=== PATIENT | male | born 2000 | race Caucasian/White ===

== ENCOUNTER 2022-08-13 18:08 | Emergency (ER) | payer MEDICAID ==
[~2022-08-13] VITALS: Ht 162.6 cm; Wt 63.5 kg
[2022-08-13 18:17] VITALS: BP 143/81
[2022-08-13 20:32] LABS: BASOPHILS # (AUTO) 0.1 K/uL (0.00-0.22); BASOPHILS % (AUTO) 0.4 % (0.0-2.0); EOSINOPHILS # (AUTO) 0.3 K/uL (0-0.4); EOSINOPHILS % (AUTO) 2.1 % (0.0-4.0); HEMATOCRIT 41.4 % (36-52); HEMOGLOBIN 14.1 g/dL (12.0-18.0); LYMPHOCYTES # (AUTO) 2.5 K/uL (2.0-11.5); LYMPHOCYTES % (AUTO) 15.7 % (20.5-51.1); MEAN CORPUSCULAR HEMOGLOBIN 31 pg (27-31); MEAN CORPUSCULAR HGB CONC 34 g/dL (33-37); MEAN CORPUSCULAR VOLUME 90.1 fL (80-94); MONOCYTES # (AUTO) 0.9 K/uL (0.8-1.0); MONOCYTES % (AUTO) 5.4 % (1.7-9.3); NEUTROPHILS # (AUTO) 12.3 K/uL (1.8-7.7); NEUTROPHILS % (AUTO) 76.4 % (42.2-75.2); PLATELET COUNT (AUTO) 269 K/uL (140-450); RED BLOOD CELL COUNT(AUTO) 4.59 MIL/uL (4.20-6.10); RED CELL DISTRIBUTION WIDTH 12.9 % (11.6-13.7); WHITE BLOOD COUNT (AUTO) 16.2 K/uL (4.8-10.8)
--- NOTE | 2022-08-13 20:55 | NUR ---
Pt to bed 1
[2022-08-13 20:57] LABS: ALBUMIN 4.6 g/dL (3.4-5.0); ANION GAP 12.9 (8-16); CARBON DIOXIDE 23.9 mmol/L (21-32); POTASSIUM 3.8 mmol/L (3.5-5.1); TOTAL BILIRUBIN 0.1 mg/dL (0.0-1.0)
[2022-08-13] MEDS ORDERED: IBUP-1842 PO (20:59)
[2022-08-13] MEDS ORDERED: DOXY-745 PO (20:59)
--- NOTE | 2022-08-13 21:00 | NUR ---
Note nikki in ED - 08/13/22 at 2110 by [id number] Patient resting in bed, A/Ox4, paranoid, chest rise and fall symmetrical, no s/s of distress.
--- NOTE | 2022-08-13 21:01 | NUR ---
Patient resting in bed, A/Ox4, chest rise and fall symmetrical, no s/s of distress.
--- NOTE | 2022-08-13 21:02 | NUR ---
Dr. Cerrato assessing patient.
[2022-08-13 21:07] VITALS: BP 127/75
== END 2022-08-13 21:07 | disposition home or self-care (01) ==
LOC: MED 18:08
DX: R59.1 Generalized enlarged lymph nodes (principal)
CPT/HCPCS: 36415; 71045; 76881; 80053; 85025; 93005; 99285; Q0092

== ENCOUNTER 2022-08-27 21:04 | Emergency (ER) | payer MEDICAID ==
[~2022-08-27] VITALS: Ht 152.4 cm; Wt 59.0 kg
[~2022-08-27 21:04] MED LIST: DOXY-745 PO; IBUP-1842 PO
[2022-08-27 21:23] VITALS: BP 131/54
--- NOTE | 2022-08-27 21:25 | NUR ---
TO LOBBY A/W BED AMBULATORY
--- NOTE | 2022-08-27 23:51 | NUR ---
TO BED 11.
--- NOTE | 2022-08-28 | NUR ---
PATIENT CALL TO PUT ON BED , NO RESPONSE, DOESNT WANT TO WAIT. PATIENT LEFT WITHOUT BEING SEEN BY DR. ZUNIGA. NO FURTHER CARE PROVIDED FOR PATIENT.
== END 2022-08-29 | disposition left against medical advice (07) ==
LOC: MED 21:04
DX: L02.414 Cutaneous abscess of left upper limb (principal); Z53.21 Procedure and treatment not carried out due to patient leaving prior to being seen by health care provider

== ENCOUNTER 2023-01-18 07:47 | Emergency (ER) | payer MEDICAID ==
[~2023-01-18] VITALS: Ht 149.9 cm; Wt 52.2 kg
[2023-01-18 07:48] VITALS: BP 131/89; PULSE 70; RESP 20; TEMP 98; O2SAT 100
[2023-01-18] MEDS ORDERED: KETOROLAC 15 MG/ML VIAL IM ONE (08:05)
[2023-01-18 08:16] VITALS: O2SAT 99
--- NOTE | 2023-01-18 08:21 | NUR ---
PATIENT PRESENTS TO ED WITH CHEST PAIN . PT STATES HES BEEN HAVING THIS PAIN FOR 7 MONTHS. PT STATES THE PAIN IS SHARP AND THROBBING RADIATES FROM LEFT ARMPINT THROUGH MIDLINE CHEST.DENIES N/V/D; SKIN IS PINK/WARM/DRY; AAOX4 WITH EVEN AND STEADY GAIT; LUNGS CLEAR BL; HR EVEN AND REGULAR; PT DENIES ANY FEVER, CP, SOB, OR COUGH AT THIS TIME; PATIENT STATES PAIN OF 6/10 AT THIS TIME; VSS; PATIENT POSITIONED FOR COMFORT; HOB ELEVATED; BEDRAILS UP X2; BED DOWN. ER MD MADE AWARE OF PT STATUS. PREVIOUS HX IMFECTION IN ARM TREATED WITH ANTIBIOTICS LEVY STOLL
--- NOTE | 2023-01-18 08:34 | NUR ---
PT HAS BEEN MEDICATED PER PROVIDERS ORDERS.
[2023-01-18 08:35] VITALS: RESP 14
[2023-01-18] MEDS ORDERED: IBUP-1842 PO (09:01)
[2023-01-18 10:23] VITALS: BP 109/69; PULSE 73; TEMP 97.3; O2SAT 99
--- NOTE | 2023-01-18 10:23 | NUR ---
Patient discharged with v/s stable. Written and verbal after care instructions given and explained. Patient verbalized understanding. Ambulatory with steady gait. All questions addressed prior to discharge. Advised to follow up with PMD.
== END 2023-01-18 10:29 | disposition home or self-care (01) ==
LOC: MED 07:47 → EDBD 07:47 → MED 10:29
DX: R07.9 Chest pain, unspecified (principal); Z79.1 Long term (current) use of non-steroidal anti-inflammatories (NSAID); Z79.2 Long term (current) use of antibiotics
CPT/HCPCS: 71045; 93005; 96372; 99283; J1885; Q0092

== ENCOUNTER 2023-04-23 15:51 | Emergency (ER) | payer SELFPAY ==
[~2023-04-23] VITALS: Ht 149.9 cm; Wt 49.9 kg
[2023-04-23 17:00] VITALS: BP 138/79; PULSE 79; RESP 18; TEMP 98.8; O2SAT 99
[2023-04-23 17:17] LABS: BASOPHILS # (AUTO) 0.1 K/uL (0.00-0.22); BASOPHILS % (AUTO) 0.7 % (0.0-2.0); EOSINOPHILS # (AUTO) 0.2 K/uL (0-0.4); EOSINOPHILS % (AUTO) 1.5 % (0.0-4.0); HEMATOCRIT 43.3 % (36-52); HEMOGLOBIN 14.7 g/dL (12.0-18.0); LYMPHOCYTES # (AUTO) 3.1 K/uL (2.0-11.5); LYMPHOCYTES % (AUTO) 23.1 % (20.5-51.1); MEAN CORPUSCULAR HEMOGLOBIN 31 pg (27-31); MEAN CORPUSCULAR HGB CONC 34 g/dL (33-37); MEAN CORPUSCULAR VOLUME 90.1 fL (80-94); MONOCYTES # (AUTO) 0.9 K/uL (0.8-1.0); MONOCYTES % (AUTO) 6.8 % (1.7-9.3); NEUTROPHILS % (AUTO) 67.9 % (42.2-75.2); PLATELET COUNT (AUTO) 302 K/uL (140-450); RED CELL DISTRIBUTION WIDTH 13.2 % (11.6-13.7); WHITE BLOOD COUNT (AUTO) 13.3 K/uL (4.8-10.8)
[2023-04-23] MEDS ORDERED: KETOROLAC 30 MG/ML VIAL IM ONE (17:25)
[2023-04-23 17:34] LABS: ALBUMIN 4.1 g/dL (3.4-5.0); ANION GAP 11.6 (8-16); CALCIUM 9.3 mg/dL (8.5-10.1); CARBON DIOXIDE 27.1 mmol/L (21-32); CREATININE 0.8 mg/dL (0.6-1.3); POTASSIUM 3.7 mmol/L (3.5-5.1); TOTAL BILIRUBIN 0.1 mg/dL (0.0-1.0); TOTAL PROTEIN, SERUM 7.7 g/dL (6.4-8.2)
[2023-04-23 17:59] LABS: APPEARANCE,URINE CLEAR (CLEAR); BILIRUBIN,URINE NEGATIVE (NEGATIVE); BLOOD, URINE NEGATIVE (NEGATIVE); COLOR,URINE YELLOW (YELLOW); LEUKOCYTE ESTERASE ,URINE NEGATIVE (NEGATIVE); NITRITE, URINE NEGATIVE (NEGATIVE); PH,URINE 6.5 (5.0-9.0); PROTEIN,URINE NEGATIVE (NEGATIVE); UGLUCOSE NEGATIVE (NEGATIVE); UROBILINOGEN,URINE 0.2 EU/dL (0.2 - 1)
[2023-04-23] MEDS ORDERED: ONDA-188 PO (18:34)
[2023-04-23] MEDS ORDERED: DICY-209 PO (18:34)
[2023-04-23] MEDS ORDERED: IBUP-2213 PO (18:34)
[2023-04-23 18:52] VITALS: BP 138/79; PULSE 79; RESP 18; TEMP 98.8; O2SAT 99
== END 2023-04-23 18:53 | disposition home or self-care (01) ==
LOC: MED 15:51
DX: R10.32 Left lower quadrant pain (principal); D72.829 Elevated white blood cell count, unspecified; Z79.899 Other long term (current) drug therapy
CPT/HCPCS: 36415; 74176; 80053; 81003; 83690; 85025; 96372; 99285; J1885

== ENCOUNTER 2024-02-25 09:11 | Emergency (ER) | payer MEDICAID ==
[~2024-02-25] VITALS: Ht 149.9 cm; Wt 63.5 kg
[~2024-02-25 09:11] MED LIST changes: +DICY-209 PO; +DOXY-22 PO; -DOXY-745 PO; +IBUP-2213 PO; +ONDA-188 PO
[2024-02-25 09:16] VITALS: BP 139/88; PULSE 98; RESP 22; TEMP 97.9; O2SAT 100
[2024-02-25] MEDS ORDERED: CEPH-588 PO (09:44)
[2024-02-25] MEDS ORDERED: IBUP-2218 PO (09:44)
[2024-02-25] MEDS: KETOROLAC 30 MG/ML VIAL IM ONE (09:56)
[2024-02-25] MEDS: ACETAMINOPHEN EXTRA STRENGTH 500 MG TAB PO ONE (10:09)
[2024-02-25] MEDS ORDERED: ACET-10509 PO (10:30)
== END 2024-02-25 10:46 | disposition home or self-care (01) ==
LOC: MED 09:11
DX: M79.652 Pain in left thigh (principal); L53.9 Erythematous condition, unspecified; Z79.899 Other long term (current) drug therapy
CPT/HCPCS: 96372; 99283; J1885